=== PATIENT | male | born 1965 | race Caucasian/White ===

== ENCOUNTER 2019-08-31 17:35 | Emergency (ER) | payer MEDICAID, OTHER ==
[~2019-08-31] VITALS: Ht 182.9 cm; Wt 90.7 kg
--- NOTE | 2019-08-31 18:22 | NUR ---
PATIENT WAS SEEN BY MD. MEDS GIVEN ORDERED.
[2019-08-31] MEDS ORDERED: IBUPROFEN 800 MG TABLET ONE (18:25)
[2019-08-31] MEDS ORDERED: OXYCODONE/APAP 5-325 MG TABLET ONE (18:25)
[2019-08-31] MEDS ORDERED: OXYCODONE/APAP 5-325 MG TABLET PO ONE (18:30)
[2019-08-31] MEDS ORDERED: IBUPROFEN 800 MG TABLET PO ONE (18:30)
--- NOTE | 2019-08-31 18:58 | NUR ---
DC, RX (INCLUDING PRECAUTIONS) AND FOLLOW UP INSTRUCTIONS GIVEN AND EXPLAINED TO PATIENT WHO STATES HE UNDERSTANDS ALL INSTRUCTIONS.
== END 2019-08-31 19:19 | disposition home or self-care (01) ==
LOC: ER 17:39
DX: S43.401A Unspecified sprain of right shoulder joint, initial encounter (principal); F17.210 Nicotine dependence, cigarettes, uncomplicated; W18.39XA Other fall on same level, initial encounter; Y93.89 Activity, other specified; Y92.89 Other specified places as the place of occurrence of the external cause; Y99.8 Other external cause status
CPT/HCPCS: 73030; 73060; A4663

== ENCOUNTER 2022-05-03 17:13 | Emergency (ER) | payer OTHER ==
[~2022-05-03] VITALS: Ht 182.9 cm; Wt 90.7 kg
[2022-05-03] MEDS ORDERED: LOSA50TA39 PO (17:21)
--- NOTE | 2022-05-03 17:25 | NUR ---
MD at bedside, medical screening exam in progress.
[2022-05-03] MEDS ORDERED: KETOROLAC TROMETHAMINE 30 MG INJ IVP ONE ×2 (17:30→18:00)
[2022-05-03] MEDS ORDERED: IV NORMAL SALINE 1000 ML BAG IV ONE (17:30)
[2022-05-03] MEDS ORDERED: HYDROMORPHONE 1 MG/1 ML DISP.SYRIN IV ONE ×3 (17:30→18:30)
[2022-05-03] MEDS ORDERED: HYDROMORPHONE 1 MG/1 ML DISP.SYRIN ONE ×3 (17:35→18:25)
[2022-05-03 17:38] LABS: HEMATOCRIT 48.9 % (36.7-47.1); MEAN CORPUSCULAR HEMOGLOBIN 31.1 uug (23.8-33.4); MEAN CORPUSCULAR VOLUME 91.9 fL (73.0-96.2); PLATELET COUNT (AUTO) 268 K/uL (152-348)
[2022-05-03 17:46] LABS: *BILIRUBIN,URIN NEGATIVE (NEGATIVE); *BLOOD, URINE 2+ (NEGATIVE); *CLARITY,URINE CLEAR (CLEAR); *COLOR,URINE YELLOW (YELLOW); *KETONES,URINE NEGATIVE (NEGATIVE); *UROBILINOGEN,URINE 0.2 E.U./dl (NORMAL); LEUKOCYTE ESTERASE ,URINE NEGATIVE (NEGATIVE); NITRITE, URINE NEGATIVE (NEGATIVE); UGLUCOSE NEGATIVE (NEGATIVE)
[2022-05-03 17:48] LABS: CREATININE 0.8 mg/dL (0.6-1.3); POTASSIUM 3.9 mmol/L (3.5-5.1)
[2022-05-03 17:54] LABS: BILIRUBIN,DIRECT 0.1 mg/dL (0.0-0.2); BILIRUBIN,TOTAL 0.2 mg/dL (0.2-1.0); TOTAL PROTEIN, SERUM 6.9 g/dL (6.4-8.2)
[2022-05-03] MEDS ORDERED: KETOROLAC TROMETHAMINE 30 MG INJ ONE (17:57)
[2022-05-03] MEDS ORDERED: OXYC-133 PO (18:17)
[2022-05-03] MEDS ORDERED: IBUP-1955 PO (18:19)
--- NOTE | 2022-05-03 18:56 | NUR ---
Patient discharged to home in stable condition. Written and verbal after care instructions given. Patient verbalizes understanding of instructions. Stressed follow up or return to ER for worsening s/s. IV removed aseptically.
[2022-05-03 18:57] VITALS: BP 132/80
[2022-05-03 20:32] LABS: RBC,URINE 20-50 /HPF (0-3); WBC,URINE 0-3 /HPF (0-3)
[2022-05-03 20:33] LABS: BACTERIA,URINE NONE SEEN /HPF (NONE SEEN); MUCUS,URINE FEW /LPF (0-FEW); SQUAMOUS EPITHELIAL CELL,UR FEW /HPF (NONE SEEN)
== END 2022-05-03 18:58 | disposition home or self-care (01) ==
LOC: ER 17:14
DX: N23 Unspecified renal colic (principal); N20.1 Calculus of ureter; Z87.442 Personal history of urinary calculi
CPT/HCPCS: 36415; 80048; 80076; 81001; 83690; 85025; 96361; 96374; 96375; 96376; 99284; J1170 ×3; J1885; J7040; A4663

== ENCOUNTER 2022-08-13 22:50 | Emergency (ER) | payer OTHER ==
[~2022-08-13] VITALS: Ht 182.9 cm; Wt 90.7 kg
[~2022-08-13 22:50] MED LIST: IBUP-1955 PO; LOSA50TA39 PO; OXYC-133 PO
[2022-08-13 23:37] LABS: *BILIRUBIN,URIN NEGATIVE (NEGATIVE); *BLOOD, URINE 3+ (NEGATIVE); *COLOR,URINE YELLOW (YELLOW); *KETONES,URINE NEGATIVE (NEGATIVE); *UROBILINOGEN,URINE 0.2 E.U./dl (NORMAL); LEUKOCYTE ESTERASE ,URINE NEGATIVE (NEGATIVE); NITRITE, URINE NEGATIVE (NEGATIVE); PH,URINE 5.5 (5.0-8.0); UGLUCOSE NEGATIVE (NEGATIVE)
[2022-08-13 23:38] LABS: *CLARITY,URINE HAZY (CLEAR)
--- NOTE | 2022-08-13 23:55 | NUR ---
PATIENT WALKED INTO ER C/O INTERMITTEN RLQ ABDOMINAL PAIN FOR 3 DAYS BUT WORST IN THE LAST 4HRS.
[2022-08-14] MEDS ORDERED: ONDANSETRON 4 MG/2 ML VIAL ONE (00:28)
[2022-08-14] MEDS ORDERED: MORPHINE SULFATE 4 MG/1 ML DISP.SYRIN ONE (00:28)
[2022-08-14] MEDS ORDERED: MORPHINE SULFATE 4 MG/1 ML DISP.SYRIN IV ONE (00:30)
[2022-08-14] MEDS ORDERED: ONDANSETRON 4 MG/2 ML VIAL IV ONE (00:30)
[2022-08-14] MEDS ORDERED: IV NS 1000 ML 1,000 ML IV ONE (00:30)
[2022-08-14 00:35] LABS: HEMATOCRIT 47.2 % (36.7-47.1); MEAN CORPUSCULAR HEMOGLOBIN 31.8 uug (23.8-33.4); MEAN CORPUSCULAR VOLUME 93.9 fL (73.0-96.2); PLATELET COUNT (AUTO) 287 K/uL (152-348)
[2022-08-14 00:49] LABS: CARBON DIOXIDE 28 mmol/L (21-32); CHLORIDE 105 mmol/L (98-107); CREATININE 1.2 mg/dL (0.6-1.3); GLUCOSE 132 mg/dL (74-106); POTASSIUM 3.8 mmol/L (3.5-5.1); UREA NITROGEN, BLOOD 20 mg/dL (7-18)
--- NOTE | 2022-08-14 00:50 | NUR ---
Back from CT
[2022-08-14 00:58] LABS: ALANINE AMINOTRANSFERASE 42 U/L (16-63); ALKALINE PHOSPHATASE 81 U/L (50-136); ASPARTATE AMINOTRANSFERASE 17 U/L (15-37); BILIRUBIN,DIRECT < 0.1 mg/dL (0.0-0.2); BILIRUBIN,TOTAL 0.3 mg/dL (0.2-1.0); LIPASE 94 U/L (73-393)
[2022-08-14] MEDS ORDERED: OXYC-128 PO (03:52)
[2022-08-14 03:58] VITALS: BP 125/79
--- NOTE | 2022-08-14 03:58 | NUR ---
IV removed. Catheter intact and site benign. Pressure and 4x4 gauze applied to site. No bleeding noted.
--- NOTE | 2022-08-14 04:01 | NUR ---
Patient discharged to home in stable condition with patient's friend taking patient home. Written and verbal after care instructions given. Patient verbalizes understanding of instructions. Stressed follow up or return to ER for worsening s/s.
[2022-08-14 06:01] LABS: BACTERIA,URINE NONE SEEN /HPF (NONE SEEN); RBC,URINE TNTC /HPF (0-3); SQUAMOUS EPITHELIAL CELL,UR FEW /HPF (NONE SEEN); WBC,URINE 0-3 /HPF (0-3)
== END 2022-08-14 04:02 | disposition home or self-care (01) ==
LOC: ER 22:51
DX: R10.32 Left lower quadrant pain (principal); D35.02 Benign neoplasm of left adrenal gland; R00.0 Tachycardia, unspecified; N40.0 Benign prostatic hyperplasia without lower urinary tract symptoms; N20.0 Calculus of kidney
CPT/HCPCS: 81001; 99284; 74176; 96374; 96361; 96375; 80076; 80048; 83690; 85025; 84484; 36415; J2405; J2270; J7040; A4663

== ENCOUNTER 2022-09-05 20:33 | Emergency (ER) | payer OTHER ==
[~2022-09-05] VITALS: Ht 182.9 cm; Wt 90.7 kg
[~2022-09-05 20:33] MED LIST changes: +OXYC-128 PO
[2022-09-05] MEDS ORDERED: IOHEXOL 350 100 ML INFUS..BTL ONE (21:02)
--- NOTE | 2022-09-05 21:30 | NUR ---
First contact. Pt lying in bed with eyes closed. On monitor.
[2022-09-05 21:37] LABS: MEAN CORPUSCULAR HEMOGLOBIN 31.7 uug (23.8-33.4); MEAN CORPUSCULAR VOLUME 94.2 fL (73.0-96.2); PLATELET COUNT (AUTO) 280 K/uL (152-348)
[2022-09-05 23:01] LABS: *BILIRUBIN,URIN NEGATIVE (NEGATIVE); *BLOOD, URINE 3+ (NEGATIVE); *CLARITY,URINE CLEAR (CLEAR); *COLOR,URINE YELLOW (YELLOW); *KETONES,URINE NEGATIVE (NEGATIVE); *UROBILINOGEN,URINE 0.2 E.U./dl (NORMAL); LEUKOCYTE ESTERASE ,URINE NEGATIVE (NEGATIVE); NITRITE, URINE NEGATIVE (NEGATIVE); UGLUCOSE NEGATIVE (NEGATIVE)
[2022-09-05] MEDS ORDERED: CEphaleXIN 500 MG CAPSULE PO ONE (23:30)
[2022-09-05] MEDS ORDERED: IBUPROFEN 600 MG TABLET PO ONE (23:30)
[2022-09-05] MEDS ORDERED: TRAM50TA2 PO (23:39)
[2022-09-05] MEDS ORDERED: IBUP-1955 PO (23:39)
[2022-09-05] MEDS ORDERED: CEPH500C2 PO (23:40)
--- NOTE | 2022-09-05 23:55 | NUR ---
Patient discharged to homeless facility in stable condition. Written and verbal after care instructions given. Patient verbalizes understanding of instructions. Stressed follow up or return to ER for worsening s/s.Prescription x 3 given.
[2022-09-05] MEDS ORDERED: IBUPROFEN 600 MG TABLET ONE (23:58)
[2022-09-05] MEDS ORDERED: CEphaleXIN 500 MG CAPSULE ONE (23:58)
[2022-09-06 06:39] LABS: RBC,URINE 50-80 /HPF (0-3); WBC,URINE 0-3 /HPF (0-3)
[2022-09-06 06:40] LABS: BACTERIA,URINE FEW /HPF (NONE SEEN); SQUAMOUS EPITHELIAL CELL,UR FEW /HPF (NONE SEEN)
== END 2022-09-05 23:55 | disposition home or self-care (01) ==
LOC: ER 20:36
DX: R10.32 Left lower quadrant pain (principal); N20.0 Calculus of kidney; N21.0 Calculus in bladder; D35.02 Benign neoplasm of left adrenal gland; K76.9 Liver disease, unspecified; K40.20 Bilateral inguinal hernia, without obstruction or gangrene, not specified as recurrent; J98.11 Atelectasis; Z59.01 Sheltered homelessness; F17.210 Nicotine dependence, cigarettes, uncomplicated; N40.0 Benign prostatic hyperplasia without lower urinary tract symptoms
CPT/HCPCS: 99285; 74177; 80048; 81001; 85025; 36415; Q9967; A4663

== ENCOUNTER 2023-01-15 12:13 | Emergency (ER) | payer OTHER ==
[~2023-01-15] VITALS: Ht 182.9 cm; Wt 91.6 kg
[~2023-01-15 12:13] MED LIST changes: +CEPH500C2 PO; +TRAM50TA2 PO
--- NOTE | 2023-01-15 12:40 | NUR ---
Pt arrived in the ED w/ c/o L ankle pain, 08/09, d/t slipped and fell off to the floor an hour ago [employer]. Pt denies hitting his head of the floor, denies n/v, dizziness and headache. Seen by Dr. Marinelli for MSE.
[2023-01-15] MEDS ORDERED: OXYCODONE/APAP 5-325 MG TABLET ONE (13:21)
[2023-01-15] MEDS ORDERED: IBUPROFEN 600 MG TABLET ONE (13:22)
[2023-01-15] MEDS ORDERED: OXYC-128 PO (13:24)
[2023-01-15] MEDS ORDERED: IBUP-1955 PO (13:24)
[2023-01-15] MEDS: IBUPROFEN 600 MG TABLET PO ONE (13:31)
[2023-01-15] MEDS: OXYCODONE/APAP 5-325 MG TABLET PO ONE (13:32)
--- NOTE | 2023-01-15 13:40 | NUR ---
Orthopedic treatment provided including crutches and gait training. Pt in stable condition.
[2023-01-15 13:42] VITALS: BP 134/76
--- NOTE | 2023-01-15 13:42 | NUR ---
Patient discharged to home in stable condition. Written and verbal after care instructions given. Patient verbalizes understanding of instructions. Stressed follow up or return to ER for worsening s/s.
== END 2023-01-15 13:42 | disposition home or self-care (01) ==
LOC: ER 12:13
DX: S82.832A Other fracture of upper and lower end of left fibula, initial encounter for closed fracture (principal); W01.0XXA Fall on same level from slipping, tripping and stumbling without subsequent striking against object, initial encounter; Y92.89 Other specified places as the place of occurrence of the external cause; Z59.01 Sheltered homelessness; F17.210 Nicotine dependence, cigarettes, uncomplicated
CPT/HCPCS: 73610; A4663

== ENCOUNTER 2023-01-28 11:25 | Emergency (ER) | payer OTHER ==
[~2023-01-28] VITALS: Ht 182.9 cm; Wt 91.6 kg
== END 2023-01-28 12:14 | disposition home or self-care (01) ==
LOC: ER 11:25
DX: S82.832D Other fracture of upper and lower end of left fibula, subsequent encounter for closed fracture with routine healing (principal); W01.0XXD Fall on same level from slipping, tripping and stumbling without subsequent striking against object, subsequent encounter; I10 Essential (primary) hypertension; Z59.01 Sheltered homelessness; F17.210 Nicotine dependence, cigarettes, uncomplicated; N40.0 Benign prostatic hyperplasia without lower urinary tract symptoms; Z87.442 Personal history of urinary calculi; K76.9 Liver disease, unspecified
CPT/HCPCS: A4663

== ENCOUNTER 2024-05-06 03:54 | Emergency (ER) | payer SELFPAY ==
[~2024-05-06] VITALS: Ht 182.9 cm; Wt 90.7 kg
[2024-05-06] MEDS ORDERED: DOXY100T2 PO (04:03)
[2024-05-06] MEDS ORDERED: LIDOCAINE HCL 1% 20 ML VIAL ONE (04:04)
[2024-05-06] MEDS ORDERED: CEFTRIAXONE 1 G VIAL ONE (04:04)
[2024-05-06] MEDS ORDERED: DOXYCYCLINE HYCLATE 100 MG TABLET ONE (04:04)
[2024-05-06] MEDS: CEFTRIAXONE 1 G VIAL IM ONE (04:09)
[2024-05-06] MEDS: DOXYCYCLINE HYCLATE 100 MG TABLET PO ONE (04:09)
[2024-05-06 04:13] VITALS: BP 145/89; TEMP 97.8; O2SAT 98
== END 2024-05-06 04:13 | disposition home or self-care (01) ==
LOC: ER 03:56
DX: A54.01 Gonococcal cystitis and urethritis, unspecified (principal); F17.200 Nicotine dependence, unspecified, uncomplicated; Z79.899 Other long term (current) drug therapy; Z60.2 Problems related to living alone
CPT/HCPCS: 99283; 96372; J0696; J3490; A4606; A4663